=== PATIENT | female | born 1940 | race Caucasian/White ===

== ENCOUNTER 2024-11-22 02:11 | Inpatient (IN) | payer OTHER ==
[2024-11-22] MEDS ORDERED: TDAP (DIPHTH,PERTUSS(ACELL),TET VAC) 0.5 ML VIAL IMVAC ONE (02:38)
[2024-11-22] MEDS ORDERED: LIDOCAINE 1% 20 ML MDV ONE (02:38)
[2024-11-22] MEDS ORDERED: HYDROCODONE/APAP 5/325 MG TAB ONE (03:26)
[2024-11-22 04:18] LABS: PT Prothrombin Time 11.5 SECONDS (10-13.0); Protime INR 1.01
[2024-11-22 04:32] LABS: ALT/SGPT 16 U/L (13-56); AST/SGOT 17 U/L (15-37); Albumin 3.7 g/dL (3.4-5.0); Albumin/Globulin Ratio 1.1 (1.1-1.8); Alkaline Phosphatase 80 U/L (45-117); Anion Gap 9.3 mEq/L (5.0-15.0); BUN Blood Urea Nitrogen 5 mg/dL (7-18); Bicarbonate 25 mEq/L (21-32); Bilirubin Total 0.5 mg/dL (0.2-1.0); Globulin 3.4 g/dL (2.3-3.5); Glomerular Filtration Rate 82 ml/min (=/>90); Glucose Level 111 mg/dL (74-106); NT PRO-BNP 290 pg/mL (<450); Potassium 3.3 mEq/L (3.5-5.1); Protein, Total 7.1 g/dL (6.4-8.2); Sodium Level 140 mEq/L (136-145); Troponin High Sensitivity 5.3 pg/mL (<58.9)
[2024-11-22 04:33] LABS: Bilirubin Direct < 0.2 mg/dL (0-0.2); Bilirubin Indirect, Calculated 0.3 mg/dL (0.2-0.8)
[2024-11-22 04:41] LABS: Specific Gravity < 1.005 (1.005-1.030); Sqamous Epithelial <5 /HPF (None Seen); Urine Bacteria None Seen /HPF (<20); Urine Bilirubin NEGATIVE (Negative); Urine Blood Negative (Negative); Urine Clarity Turbid (Clear); Urine Color Colorless (Yellow); Urine Glucose NEGATIVE (Negative); Urine Ketones NEGATIVE (Negative); Urine Micro Reflex YN NO BILL MICROSCOPIC; Urine Nitrite NEGATIVE (Negative); Urine Protein NEGATIVE (Negative); Urine RBC None Seen /HPF (None Seen); Urine Urobilinogen Normal (Normal); Urine WBC <5 /HPF (<5); Urine pH 7.5 (5.0-7.0)
[2024-11-22 04:45] LABS: Absolute Basophils 0.1 K/uL (0-0.5); Absolute Eosinophils 0.1 K/uL (0-0.5); Absolute Lymphocytes (CBC) 1.4 K/uL (0.7-4.9); Absolute Monocytes 0.6 K/uL (0.1-1.3); Absolute Neutrophil 10.5 K/uL (1.8-8.0); Basophils % 0.5 % (0-1.3); Eosinophils % 0.7 % (0-4.4); Hemoglobin 14.8 g/dL (12.0-15.0); Lymphocytes % 10.9 % (15.3-44.8); MCH 28.9 pg (27.0-35.0); MCHC 34.4 g/dL (32.0-36.0); MCV 84.1 fL (80-100); MPV 7.8 fL (7.6-11.3); Monocytes % 4.5 % (3.3-12.3); Neutrophils % 83.4 % (41.7-73.7); Nucleated Red Blood Cells % 0.3 % (0-0); Platelets 175 thou/uL (152-406); RBC Red Blood Cell Count 5.12 M/uL (3.86-4.86); Red Cell Distribution Width 14.5 % (12.1-15.2)
[2024-11-22] MEDS ORDERED: POTASSIUM CL SA 10 MEQ TAB PO ONE (05:44)
--- NOTE | 2024-11-22 05:50 | ER ---
Nurse's Notes [facility] Name: Larisa Beyer Age: 84 yrs Sex: Female : 1940 Arrival Date: 11/22/2024 Time: 02:11 Bed 3 Private MD: Diagnosis: Syncope and collapse, acute fall at home, posterior scalp laceration, acute right hip contusion Presentation: 11/22 02:17 Chief complaint: Patient states: I fell and i am bleeding a lot. I am not on any blood kd3 thinners. I do not take any medications. I probably should but i do not. I do not know what made me fall and i do not remember why i got up out of bed in the first place. My neck and my right hip hurts, my head hurts and my nose hurts. Care prior to arrival: None. Mechanism of Injury: Fall from standing position. Trauma event details: Injury occurred in the [facility]. 02:17 Acuity: CHARLY 3 kd3 02:17 Method Of Arrival: Wheelchair kd3 02:48 Coronavirus screen: Vaccine status: unknown. Ebola Screen: No symptoms or risks kd3 identified at this time. Initial Sepsis Screen: Does the patient meet any 2 criteria? No. Patient's initial sepsis screen is negative. Does the patient have a suspected source of infection? No. Patient's initial sepsis screen is negative. Risk Assessment: Do you want to hurt yourself or someone else? Patient reports no desire to harm self or others. Onset of symptoms was November 22, 2024. Trauma Activation: Physician: ED Physician; Name: priti; Notified At: 02:20; Arrived At: 02:20 Physician: General Surgeon; Name: ; Notified At: 02:20; Arrived At: Physician: Radiology; Name: ; Notified At: 02:20; Arrived At: Physician: Respiratory; Name: ; Notified At: 02:20; Arrived At: Physician: Lab; Name: ; Notified At: 02:20; Arrived At: Historical: - Allergies: 08:41 No Known Allergies; ll1 - Immunization history: Last tetanus immunization: > 10 years ago. - Infectious Disease History:: Denies. - Social history:: Smoking status: Patient denies any tobacco usage or history of. - Family history:: not pertinent. Screenin:17 Abuse screen: Denies threats or abuse. Denies injuries from another. Tuberculosis kd3 screening: No symptoms or risk factors identified. 02:48 [facility] ED Fall Risk Assessment (Adult) History of falling in the last 3 months, kd3 including since admission Yes- single mechanical fall (1 pt) Confusion or Disorientation No (0 pts) Intoxicated or Sedated No (0 pts) Impaired Gait Yes (1 pt) Mobility Assist Device Used No (0 pt) Altered Elimination Score/Fall Risk Level 0 - 2 = Low Risk Maintained a safe environment. Nutritional screening: No deficits noted. Primary Survey: 02:17 NO uncontrolled hemorrhage observed. A: The client is awake and alert. The airway is kd3 patent. The client is alert. Airway: patent. Breathing/Chest: Spontaneous respiratory effort, equal unlabored respirations, breath sounds clear bilaterally, regular pattern, symmetrical chest rise and fall. Circulation: No external hemorrhage present. Regular and strong central pulse, skin warm/dry/normal color. Disability Pupils are equal, round, reactive to light and accommodation. Exposure/Environment: All clothing and personal items were removed. Forensic evidence collection is not deemed to be indicated at this time. Items placed in patient belonging bag. Obvious injury(ies) are noted at this time: laceration to the back of the head. 06:32 Reassessment Alertness and Airway: Awake and alert. The airway is patent. Breathing: kd3 Spontaneous respiratory effort, equal unlabored respirations, breath sounds clear bilaterally, regular pattern with symmetrical chest rise and fall. Circulation: No external hemorrhage noted. Regular and strong central pulse, skin warm/dry/normal color. Disability: Pupils Pupils are equal, round, reactive to light and accomodation. Alert. Assessment: 02:17 General: Appears in no apparent distress. Behavior is calm, cooperative. Pain: kd3 Complains of pain in scalp, right hip, nose and neck. 02:17 Neuro: No deficits noted. Level of Consciousness is awake, alert, obeys commands, kd3 Oriented to person, place, time, situation. Respiratory: Airway is patent Trachea midline Respiratory effort is even, unlabored, Respiratory pattern is regular, symmetrical. 06:27 General: PT was up for discharge. Shortly after removing her IV access and transferring kd3 her into the wheelchair, pt lost control of her bladder, Pt stated "I really do not feel well", held her head in her hands and then had a syncopal episode where she briefly became unresponsive. ER staff responded and cleaned her of urine, placed her back into the stretcher, placed on continuous monitoring, new IV access obtained in the left A/C. Pt's skin felt warm to the touch and clammy. Pt temp is 97.8. Pt is now back to baseline, alert and oriented x 4, respirations even and unlabored. Pt is NSR on the bedside monitor. Pt placed on a purwick. warm blankets provided for comfort. . 06:37 General: Pt now noted to be 88% on RA. nasal canula placed on the pt. . kd3 Vital Signs: 02:15 BP 165 / 97; Pulse 96; Resp 18; Temp 98(O); Pulse Ox 98% on R/A; Weight 53.52 kg; oe Height 5 ft. 2 in. ; 02:48 BP 168 / 84; Pulse 79; Resp 18; Pulse Ox 100% on R/A; kd3 04:53 BP 165 / 87; Pulse 83; Resp 19; Pulse Ox 94% on R/A; kd3 05:33 BP 137 / 82; Pulse 84; Resp 18; Pulse Ox 96% on R/A; oe 06:36 BP 127 / 78; Pulse 81; Resp 20; Pulse Ox 88% on R/A; kd3 08:41 BP 132 / 82; Pulse 80; Resp 18; Pulse Ox 97% on 2 lpm NC; ll1 02:15 Body Mass Index 21.58 (53.52 kg, 157.48 cm) oe [place] Coma Score: 02:17 Eye Response: spontaneous(4). Motor Response: obeys commands(6). Verbal Response: kd3 oriented(5). Total: 15. 06:02 Eye Response: spontaneous(4). Motor Response: obeys commands(6). Verbal Response: sp4 oriented(5). Total: 15. Trauma Score (Adult): 02:17 Eye Response: spontaneous(1); Verbal Response: oriented(1); Motor Response: obeys kd3 commands(2); Systolic BP: > 89 mm Hg(4); Respiratory Rate: 10 to 29 per min(4); [place] Score: 15; Trauma Score: 12 ED Course: 02:11 Patient arrived in ED. [id number] 02:12 Viktor Schroeder MD is Attending Physician. sp4 02:17 Noemi Arriola, RN is Primary Nurse. kd3 02:17 Patient has correct armband on for positive identification. kd3 02:17 Patient maintains SpO2 saturation greater than 95% on room air. kd3 02:20 Triage completed. kd3 02:57 CT Head Brain wo Cont In Process Unspecified. EDMS 03:39 Pelvis XRAY In Process Unspecified. EDMS 03:39 Femur Right XRAY In Process Unspecified. EDMS 04:04 Basic Metabolic Panel Sent. kd3 04:04 CBC with Diff Sent. kd3 04:04 LFT's Sent. kd3 04:04 NT PRO-BNP Sent. kd3 04:04 PT-INR Sent. kd3 04:04 Troponin HS Sent. kd3 04:04 Inserted saline lock: 22 gauge in right forearm, using aseptic technique. Blood kd3 collected. Flushed with 10 mL NS. 04:04 Initial lab(s) drawn, by me, sent to lab. kd3 04:20 Basic Metabolic Panel Sent. kd3 04:20 CBC with Diff Sent. kd3 04:20 LFT's Sent. kd3 04:20 NT PRO-BNP Sent. kd3 04:20 Troponin HS Sent. kd3 04:20 Urinalysis W/Microscopic Sent. kd3 04:31 EKG done, by ED staff, reviewed by Viktor Schroeder MD. oe 04:45 Assist provider with laceration repair. kd3 05:48 Jeremías Aldridge DO is Referral Physician. sp4 06:08 Tod Koehler MD is Hospitalizing Provider. sp4 06:12 Hospitalizing Provider role handed off by Tod Koehler MD sp4 06:12 Manuelito Massey is Hospitalizing Provider. sp4 06:31 Inserted saline lock: 22 gauge in left antecubital area, using aseptic technique. kd3 Flushed with 10 mL NS. 06:32 Arm band placed on Emesis basin given. kd3 06:32 Thermoregulation: warm blanket given to patient. kd3 07:00 Provided Education on: ER procedures and rpocess. ll1 08:30 Patient admitted, IV remains in place. ll1 Administered Medications: 02:42 Drug: Boostrix Tdap IM 0.5 ml IM once; as a single dose Route: IM; Site: left deltoid; kd3 08:31 Follow up: Response: No adverse reaction ll1 03:33 Drug: HYDROcodone-acetaminophen PO 5 mg-325 mg 1 tabs PO once Route: PO; kd3 08:31 Follow up: Response: No adverse reaction; Pain is decreased ll1 03:34 Drug: Lidocaine Infiltration (1 %) 20 ml 20 ml Infiltration once; to bedside {Note: kd3 administered by provider .} Volume: 20 ml; Route: Infiltration; 08:31 Follow up: Response: No adverse reaction ll1 05:47 Drug: Potassium Chloride PO 20 mEq PO once Route: PO; kd3 08:31 Follow up: Response: No adverse reaction ll1 06:26 Drug: Ondansetron IVP 4 mg IVP once; over 2 minutes Route: IVP; Site: left antecubital; kd3 08:31 Follow up: Response: No adverse reaction; Nausea is decreased ll1 Medication: 06:33 VIS not applicable for this client. kd3 Intake: 08:30 PO: 0ml; Total: 0ml. ll1 Output: 08:30 Urine: 0ml; Total: 0ml. ll1 Outcome: 05:49 Discharge ordered by . sp4 06:12 Decision to Hospitalize by Provider. sp4 08:29 Admitted to Med/surg accompanied by tech, via stretcher, room room 224, with oxygen, ll1 with chart, Report called to Report faxed to 2nd, no answer after 6 phone calls to the 2nd floor over 20 minutes times period. registered route associate informed. 08:29 Condition: stable 08:29 Instructed on the need for admit, 08:30 Patient's length of stay was not longer than 2 hours. ll1 08:41 Patient left the ED. ll1 Signatures: Dispatcher [employer] EDMS Puneet Field Lynsay, RN RN ll1 Collette Weinerj6 Noemi Arriola RN RN kd3 Viktor Schroeder MD MD sp4 Corrections: (The following items were deleted from the chart) 02:28 02:15 BP 165 / 97; Pulse 96bpm; Resp 18bpm; Pulse Ox 98% RA; Temp 98F Oral; oe oe
--- NOTE | 2024-11-22 05:50 | EDPHYS ---
Physician Documentation [facility] Name: Larisa Beyer Age: 84 yrs Sex: Female : 1940 Arrival Date: 11/22/2024 Time: 02:11 Bed 3 Private MD: ED Physician Viktor Schroeder HPI: 11/22 02:12 This 84 yrs old Female presents to ER via Unassigned with complaints of Fall sp4 Injury, Head Injury-Adult. 05:58 84-year-old female Presents with acute fall , small laceration to posterior to superior sp4 scalp, also complained of some generalized weakness. 06:02 Patient also reported some pain in her right hip.. sp4 Historical: - Allergies: 08:41 No Known Allergies; ll1 - Immunization history: Last tetanus immunization: > 10 years ago. - Infectious Disease History:: Denies. - Social history:: Smoking status: Patient denies any tobacco usage or history of. - Family history:: not pertinent. ROS: 06:02 Constitutional: Negative for fever, chills, and weight loss, positive on right hip pain sp4 and scalp laceration also positive for head injury 06:02 All other systems are negative, Exam: 06:02 Constitutional: This is a well developed, well nourished patient who is awake, alert, sp4 and in no acute distress. Head/Face: Normocephalic, atraumatic. Eyes: Pupils equal round and reactive to light, extra-ocular motions intact. Lids and lashes normal. Conjunctiva and sclera are not injected. Cornea within normal limits. Periorbital areas with no swelling, redness, or edema. ENT: Nares patent. No nasal discharge, no septal abnormalities noted. Tympanic membranes are normal and external auditory canals are clear. Oropharynx with no redness, swelling, or masses, exudates, or evidence of obstruction, uvula midline. Mucous membranes moist. Neck: Trachea midline, no thyromegaly or masses palpated, and no cervical lymphadenopathy. Supple, full range of motion without nuchal rigidity, or vertebral point tenderness. Chest/axilla: Normal chest wall appearance and motion. Nontender with no deformity. No lesions are appreciated. Cardiovascular: Regular rate and rhythm with a normal S1 and S2. No gallops, murmurs, or rubs. Normal PMI, no JVD. No pulse deficits. Respiratory: Lungs have equal breath sounds bilaterally, clear to auscultation and percussion. No rales, rhonchi or wheezes noted. No increased work of breathing, no retractions or nasal flaring. Abdomen/GI: Soft, with normal bowel sounds. No distension or tympany. No guarding or rebound. No evidence of tenderness throughout. Back: No spinal tenderness. No costovertebral tenderness. Skin: Warm, dry with normal turgor. Normal color with no rashes, no lesions, and no evidence of cellulitis. MS/ Extremity: Pulses equal, no cyanosis. Neurovascular intact. Full, normal range of motion. Neuro: Awake and alert, GCS 15, oriented to person, place, time, and situation. Cranial nerves II-XII grossly intact. Motor strength 5/5 in all extremities. Sensory grossly intact. Psych: Awake, alert, with orientation to person, place and time. Behavior, mood, and affect are within normal limits 07:05 ECG was reviewed by the Attending Physician. EKG at 0 424 first-degree AV block, sp4 sinus rhythm rate 80, left axis deviation. Vital Signs: 02:15 BP 165 / 97; Pulse 96; Resp 18; Temp 98(O); Pulse Ox 98% on R/A; Weight 53.52 kg; oe Height 5 ft. 2 in. ; 02:48 BP 168 / 84; Pulse 79; Resp 18; Pulse Ox 100% on R/A; kd3 04:53 BP 165 / 87; Pulse 83; Resp 19; Pulse Ox 94% on R/A; kd3 05:33 BP 137 / 82; Pulse 84; Resp 18; Pulse Ox 96% on R/A; oe 06:36 BP 127 / 78; Pulse 81; Resp 20; Pulse Ox 88% on R/A; kd3 08:41 BP 132 / 82; Pulse 80; Resp 18; Pulse Ox 97% on 2 lpm NC; ll1 02:15 Body Mass Index 21.58 (53.52 kg, 157.48 cm) oe [place] Coma Score: 02:17 Eye Response: spontaneous(4). Motor Response: obeys commands(6). Verbal Response: kd3 oriented(5). Total: 15. 06:02 Eye Response: spontaneous(4). Motor Response: obeys commands(6). Verbal Response: sp4 oriented(5). Total: 15. Trauma Score (Adult): 02:17 Eye Response: spontaneous(1); Verbal Response: oriented(1); Motor Response: obeys kd3 commands(2); Systolic BP: > 89 mm Hg(4); Respiratory Rate: 10 to 29 per min(4); [place] Score: 15; Trauma Score: 12 Laceration: 06:03 Wound Repair of 1cm ( 0.4in ) subcutaneous laceration to left parietal area. sp4 Irregularly shaped.. Minimal bleeding noted.. Moderate contamination.. Distal neuro/vascular/tendon intact. Anesthesia: Wound infiltrated with 10 mls of 1% lidocaine. Wound prep: Moderate cleansing by me, Copious irrigation. Skin closed with 3 4-0 Silk using interrupted sutures and sterile technique. Dressed with left to air . Patient tolerated well. MDM: 03:02 Medical Screening Exam initiated sp4 05:38 ED course: EXAM: XR Right Femur, 2 Views CLINICAL HISTORY: The patient is 84 years old sp4 and is Female; right hip pain TECHNIQUE: Two views of the right femur. COMPARISON: No relevant prior studies available. FINDINGS: Bones/joints: No acute fracture visualized. No significant arthropathy. No dislocation. Soft tissues: Unremarkable. IMPRESSION: No acute findings in the right femur. . ED course: EXAM: CT Head Without Intravenous Contrast CLINICAL HISTORY: The patient is 84 years old and is Female; head injury TECHNIQUE: Axial computed tomography images of the head/brain without intravenous contrast. Sagittal and coronal reformatted images were created and reviewed. This CT exam was performed using one or more of the following dose reduction techniques: automated exposure control, adjustment of the mA and/or kV according to patient size, and/or use of iterative reconstruction technique. COMPARISON: No relevant prior studies available. FINDINGS: Brain: Mild nonspecific white matter changes likely related to chronic microvascular ischemic disease. No hemorrhage. Ventricles: Unremarkable. No ventriculomegaly. Bones/joints: Unremarkable. No acute fracture. Soft tissues: High left scalp swelling. Sinuses: Unremarkable as visualized. Mastoid air cells: Unremarkable as visualized. No mastoid effusion. IMPRESSION: No acute intracranial abnormality. . 05:58 ED course: EXAM: XR Pelvis, 1 or 2 Views CLINICAL HISTORY: The patient is 84 years old sp4 and is Female; Right hip pain. TECHNIQUE: Single frontal view of the pelvis. COMPARISON: No relevant prior studies available. FINDINGS: Bones/joints: Small area of potential cortical discontinuity in the right proximal femoral neck, superior aspect. Left total hip arthroplasty hardware. No dislocation. Degenerative changes in the spine. No acute fracture. Soft tissues: Unremarkable. IMPRESSION: Small area of potential cortical discontinuity in the right proximal femoral neck, superior aspect. Dedicated x-rays of the right hip recommended.. 06:05 Differential diagnosis: abrasion, closed head injury, contusion, fracture, laceration, sp4 multiple trauma, sprain, strain. Data reviewed: vital signs, nurses notes, old medical records, lab test result(s), radiologic studies, CT scan, plain films. Consideration of Admission/Observation Escalation of care including admission/observation considered. ED course: Laceration repaired. Workup today is unremarkable. EKG is basically unremarkable. Patient stable for discharge. 11/22 03:49 Order name: Basic Metabolic Panel; Complete Time: 05:01 sp4 11/22 03:49 Order name: CBC with Diff sp4 11/22 03:49 Order name: LFT's; Complete Time: 05:01 sp4 11/22 03:49 Order name: NT PRO-BNP; Complete Time: 05:01 sp4 11/22 03:49 Order name: PT-INR; Complete Time: 05:01 sp4 11/22 03:49 Order name: Troponin HS; Complete Time: 05:01 sp4 11/22 03:49 Order name: Urinalysis W/Microscopic; Complete Time: 05:01 sp4 11/22 04:49 Order name: CBC Smear Scan EDMS 11/22 07:21 Order name: Urinalysis w/ reflexes EDMS 11/22 07:21 Order name: CBC with Automated Diff EDMS 11/22 07:21 Order name: CBC with Automated Diff EDMS 11/22 07:21 Order name: CBC with Automated Diff EDMS 11/22 07:21 Order name: CBC with Automated Diff EDMS 11/22 07:21 Order name: Comprehensive Metabolic Panel EDMS 11/22 07:21 Order name: Comprehensive Metabolic Panel EDMS 11/22 07:21 Order name: Comprehensive Metabolic Panel EDMS 11/22 07:21 Order name: Comprehensive Metabolic Panel EDMS 11/22 07:21 Order name: T4 Free EDMS 11/22 07:21 Order name: T4 Free EDAL 11/22 07:21 Order name: Thyroid Stimulating Hormone EDAL 11/22 07:21 Order name: Thyroid Stimulating Hormone EDAL 11/22 07:21 Order name: Troponin High Sensitivity EDAL 11/22 07:21 Order name: Troponin High Sensitivity EDAL 11/22 07:21 Order name: Troponin High Sensitivity EDAL 11/22 02:28 Order name: CT Head Brain wo Cont; Complete Time: 06:45 sp4 11/22 03:04 Order name: Pelvis XRAY; Complete Time: 06:45 sp4 11/22 03:04 Order name: Femur Right XRAY; Complete Time: 06:45 sp4 11/22 03:49 Order name: EKG; Complete Time: 03:50 sp4 11/22 07:21 Order name: Physical Therapy Consult EDAL 11/22 02:28 Order name: Dressing - Wound; Complete Time: 02:42 sp4 11/22 02:28 Order name: Gloves, Sterile; Complete Time: 02:42 sp4 11/22 02:28 Order name: Setup Suture Tray; Complete Time: 02:42 sp4 11/22 03:49 Order name: Cardiac monitoring; Complete Time: 04:19 sp4 11/22 03:49 Order name: EKG - Nurse/Tech; Complete Time: 04:19 sp4 11/22 03:49 Order name: IV Saline Lock; Complete Time: 04:04 sp4 11/22 03:49 Order name: Labs collected and sent; Complete Time: 04:19 sp4 11/22 03:49 Order name: O2 Per Protocol; Complete Time: 04:19 sp4 11/22 03:49 Order name: O2 Sat Monitoring; Complete Time: 04:19 sp4 11/22 06:14 Order name: IV Start; Complete Time: 06:26 kd3 EC:24 Rate is 80 beats/min. Rhythm is regular, Sinus Rhythm. Left axis deviation noted. MO sp4 interval is prolonged. QRS interval is normal. QT interval is normal. No Q waves. T waves are Normal. No ST changes noted. Clinical impression: No evidence of ischemia. Interpreted by me. Reviewed by me. Administered Medications: 02:42 Drug: Boostrix Tdap IM 0.5 ml IM once; as a single dose Route: IM; Site: left deltoid; kd3 08:31 Follow up: Response: No adverse reaction ll1 03:33 Drug: HYDROcodone-acetaminophen PO 5 mg-325 mg 1 tabs PO once Route: PO; kd3 08:31 Follow up: Response: No adverse reaction; Pain is decreased ll1 03:34 Drug: Lidocaine Infiltration (1 %) 20 ml 20 ml Infiltration once; to bedside {Note: kd3 administered by provider .} Volume: 20 ml; Route: Infiltration; 08:31 Follow up: Response: No adverse reaction ll1 05:47 Drug: Potassium Chloride PO 20 mEq PO once Route: PO; kd3 08:31 Follow up: Response: No adverse reaction ll1 06:26 Drug: Ondansetron IVP 4 mg IVP once; over 2 minutes Route: IVP; Site: left antecubital; kd3 08:31 Follow up: Response: No adverse reaction; Nausea is decreased ll1 Disposition Summary: 11/22/24 06:12 Hospitalization Ordered Notes: Return to ER on December 13 for suture removal Hospitalization Status: Inpatient Admission sp4 Location: Telemetry/[facility] (Inpatient)(11/22/24 06:12) sp4 Condition: Stable(11/22/24 06:12) sp4 Problem: new(11/22/24 06:12) sp4 Symptoms: have improved(11/22/24 06:12) sp4 Bed/Room Type: Standard sp4 Provider: Manuelito Massey(11/22/24 06:13) sp4 Room Assignment: 224(11/22/24 07:45) sp Diagnosis - Syncope and collapse, acute fall at home, posterior scalp laceration, acute sp4 right hip contusion Forms: - Medication Reconciliation Form sp4 - SBAR form sp4 - Leadership Thank You Letter sp4 Signatures: Dispatcher [employer] EDMS Victorina Sauceda Lee, DISTRICT PLANT SUPERINTENDENT-C DISTRICT PLANT SUPERINTENDENT-Cla1 Jodee Jimenez RN RN ll1 Noemi Arriola RN RN kd3 Viktor Schroeder MD MD sp4 Corrections: (The following items were deleted from the chart) 02:28 02:28 Head Brain Wo Cont+CT.RAD.BRZ ordered. EDMS EDMS 03:05 03:05 Pelvis+RAD.RAD.BRZ ordered. EDMS EDMS 03:05 03:05 Femur Right+RAD.RAD.BRZ ordered. EDMS EDMS 03:50 03:50 BASIC METABOLIC PANEL+C.LAB.BRZ ordered. EDMS EDMS 03:50 03:50 CBC+H.LAB.BRZ ordered. EDMS EDMS 03:50 03:50 HEPATIC FUNCTION+C.LAB.BRZ ordered. EDMS EDMS 03:50 03:50 PROBNP+C.LAB.BRZ ordered. EDMS EDMS 03:50 03:50 PROTIME (+INR)+COAG.LAB.BRZ ordered. EDMS EDMS 03:50 03:50 Troponin High Sensitivity+C.LAB.BRZ ordered. EDMS EDMS 06:08 05:49 Home sp4 sp4 06:08 05:49 new sp4 sp4 06:08 05:49 have improved sp4 sp4 06:08 05:49 Stable sp4 sp4 06:08 05:49 Laceration without foreign body of scalp sp4 sp4 06:08 05:49 Acute fall at home, mild hypokalemia, acute scalp laceration, acute right hip sp4 pain and contusion sp4 06:13 06:12 Tod Koehler sp4 sp4 07:45 06:12 sp4 sp
--- NOTE | 2024-11-22 06:11 | RAD REPORT ---
EXAM: XR Pelvis, 1 or 2 Views CLINICAL HISTORY: The patient is 84 years old and is Female; Right hip pain. TECHNIQUE: Single frontal view of the pelvis. COMPARISON: No relevant prior studies available. FINDINGS: Bones/joints: Small area of potential cortical discontinuity in the right proximal femoral neck, superior aspect. Left total hip arthroplasty hardware. No dislocation. Degenerative changes in the spine. No acute fracture. Soft tissues: Unremarkable. IMPRESSION: Small area of potential cortical discontinuity in the right proximal femoral neck, superior aspect. Dedicated x-rays of the right hip recommended. Electronically signed by: Jackie Torres MD 11/22/2024 05:39 AM CDT RP V2 Due to temporary technical issues with the PACS/[employer] reporting system, reports are being song d by the in-house radiologist without review as a courtesy to ensure prompt reporting the interpreting radiologist is fully responsible for the content of the report. Transcribed Date/Time: 11/22/2024 6:11 AM
--- NOTE | 2024-11-22 06:11 | RAD REPORT ---
EXAM: XR Right Femur, 2 Views CLINICAL HISTORY: The patient is 84 years old and is Female; right hip pain TECHNIQUE: Two views of the right femur. COMPARISON: No relevant prior studies available. FINDINGS: Bones/joints: No acute fracture visualized. No significant arthropathy. No dislocation. Soft tissues: Unremarkable. IMPRESSION: No acute findings in the right femur. Electronically signed by: Jackie Torres MD 11/22/2024 05:35 AM CDT RP V2 Due to temporary technical issues with the PACS/[employer] reporting system, reports are being song d by the in-house radiologist without review as a courtesy to ensure prompt reporting the interpreting radiologist is fully responsible for the content of the report. Transcribed Date/Time: 11/22/2024 6:10 AM
[2024-11-22] MEDS ORDERED: ONDANSETRON 4 MG/2 ML VIAL ONE (06:16)
--- NOTE | 2024-11-22 06:36 | RAD REPORT ---
EXAM: CT Head Without Intravenous Contrast CLINICAL HISTORY: The patient is 84 years old and is Female; head injury TECHNIQUE: Axial computed tomography images of the head/brain without intravenous contrast. Sagit dona and coronal reformatted images were created and reviewed. This CT exam was performed using one or more of the following dose reduction techniques: automated exposure control, adjustment of t he mA and/or kV according to patient size, and/or use of iterative reconstruction technique. COMPARISON: No relevant prior studies available. FINDINGS: Brain: Mild nonspecific white matter changes likely related to chronic microvascular ischemic dis ease. No hemorrhage. Ventricles: Unremarkable. No ventriculomegaly. Bones/joints: Unremarkable. No acute fracture. Soft tissues: High left scalp swelling. Sinuses: Unremarkable as visualized. Mastoid air cells: Unremarkable as visualized. No mastoid effusion. IMPRESSION: No acute intracranial abnormality. Electronically signed by: Damian Alegria MD 11/22/2024 04:30 AM CDT RP 8 Due to temporary technical issues with the PACS/Bloo[employer] reporting system, reports are being song d by the in-house radiologist without review as a courtesy to ensure prompt reporting the interpreting radiologist is fully responsible for the content of the report. Transcribed Date/Time: 11/22/2024 6:33 AM
[2024-11-22 07:28] LABS: White Blood Cell Scan OK (OK)
[2024-11-22 07:31] LABS: Blood Morphology Comment NOT SEEN (NOT SEEN)
[2024-11-22 07:32] LABS: Platelet Estimate ADEQ
--- NOTE | 2024-11-22 09:16 | P.HP ---
Certification for Inpatient Patient admitted to: Inpatient With expected LOS: >2 Midnights Patient will require the following post-hospital care: None Practitioner: I am a practitioner with admitting privileges, knowledge of patient current condition, hospital course, and medical plan of care. Services: Services provided to patient in accordance with Admission requirements found in Title 42 Section 412.3 of the Code of Federal Regulations Patient History Date of Service: 11/22/24 Reason for admission: Falls, syncope History of Present Illness: 84-year-old female with no reported past medical history presents to the emergency department after an unwitnessed fall. She lives at home with her brother and had reportedly crawled to his door to ask for help after falling. She had a laceration to her scalp and she had complained about pain to her hip. She was evaluated in the emergency department her laceration was repaired. She had imaging of her pelvis and femur with no fracture found and CT of her head was negative for acute findings. Initially plan was for discharge but when patient was moved into a wheelchair she had a syncopal episode with incontinence. Her initial high sensory troponin was normal, she is currently alert and oriented x 3. She will be admitted for further evaluation and management of falls, syncope. - Past Medical/Surgical History -: None reported -: Left hip replacement Psychosocial/ Personal History: Lives at home with her brother - Social History Alcohol use: No CD- Drugs: No Caffeine use: Yes Place of Residence: Home Review of Systems 10-point ROS is otherwise unremarkable Musculoskeletal: Other (Hip pain) Neurological: Other (Syncope) Physical Examination - Physical Exam General: Alert, In no apparent distress, Oriented x3 HEENT: Atraumatic, PERRLA, EOMI Neck: Supple, 2+ carotid pulse no bruit, No LAD Respiratory: Clear to auscultation bilaterally, Normal air movement Cardiovascular: Regular rate/rhythm, Normal S1 S2 Gastrointestinal: Normal bowel sounds, No tenderness Musculoskeletal: No tenderness Integumentary: No rashes Neurological: Normal gait, Normal speech, Normal strength at 5/5 x4 extr, Normal affect - Studies Laboratory Data (last 24 hrs) 11/22/24 11/22/24 11/22/24 04:38 04:04 04:04 WBC 12.60 H Hgb 14.8 Hct 43.0 Plt Count 175 PT 11.5 INR 1.01 Sodium 140 Potassium 3.3 L BUN 5 L Creatinine 0.72 Glucose 111 H Total Bilirubin 0.5 AST 17 ALT 16 Alkaline Phosphatase 80 Assessment and Plan - Plan Assessment: Falls, syncope Plan: Falls, syncope Trend troponins and monitor on telemetry Orthostatic vital signs PT consultation Family reports poor oral intake, encourage oral intake Gentle IV fluids for today DVT PPX: Lovenox Code status: Full Discharge Plan: Home Plan to discharge in: 48 Hours - Advance Directives Does patient have a Living Will: No Does patient have a Durable POA for Healthcare: No - Code Status/Comfort Care Code Status Assessed: Yes (Full code) Critical Care: No Time Spent Managing Pts Care (In Minutes): 67
[2024-11-22] MEDS: HYDRALAZINE HCL 20 MG/ML VIAL IV PRN (09:47)
[2024-11-22 10:34] VITALS: BMI 21.5
[2024-11-22] MEDS: INFLUENZA VACCINE (for 6+ mo) 0.5 ML DOSE IMVAC ONE (12:00)
[2024-11-22] MEDS: NA CHLORIDE 0.9% 1,000 ML IV SCH (12:26)
--- NOTE | 2024-11-22 23:14 | CON ---
Date of Consultation: 11/22/2024 Reason For Consultation: Syncope. History Of Present Illness: An 84-year-old female presented to the emergency room after unwitnessed fall that happened at home. She reported that she tried to crawl to the door asking for help and upo n arrival to the emergency room, she was found to have scalp laceration. Denies having any chest jones n or palpitations, but she says she has been feeling dizzy. Presently vital signs are stable upon ar rival to the hospital. Past Medical History: None. Past Surgical History: Left hip replacement. Medications: Refer reconciliation sheet for detailed list. Allergies: PENICILLIN. Family History: No premature coronary artery disease or cancer. Social History: Does not smoke or drink. Does not use any drugs. Review of Systems: All systems reviewed are negative except as mentioned in the HPI. Physical Examination: Vital Signs: Reviewed. Head and Neck: Pupils are equal, reactive to light. Intact eye movements. No JVD. No cervical lym phadenopathy. Neck supple. Thyroid is not enlarged. Lungs: Clear to auscultation bilaterally. No rhonchi, wheezing, or crackles. No accessory muscle u se. Heart: Regular rate and rhythm. No extra sounds. Abdomen: Soft, nontender. Bowel sounds positive. No organomegaly. No masses or hernia. No rigidi ty or rebound. Extremities: No edema, clubbing, or cyanosis. Intact pulses. Skin: No rash. No nodules. Neurologic: Alert, awake, and oriented x3. No acute focal deficits appreciated. Investigations: First troponin is negative. BUN 5, creatinine 0.72. Hemoglobin is 14.8. Assessment/recommendation: 1. Syncope, unclear etiology. Monitor on telemetry. Trend cardiac enzymes and obtain an echo and pl an accordingly. 2. Leukocytosis. She does have urinary tract infection, which could be the cause of her fall. I rec ommend antibiotics, Rocephin 1 g q.24 hours. 3. Hypokalemia. Repeat potassium today, assure stability. Thank you for the consult. /IVANA Voice ID: [id number] Report ID: [id number]
[2024-11-23 06:25] LABS: Absolute Eosinophils 0.3 K/uL (0-0.5); Absolute Lymphocytes (CBC) 1.1 K/uL (0.7-4.9); Absolute Monocytes 0.5 K/uL (0.1-1.3); Absolute Neutrophil 4.4 K/uL (1.8-8.0); Basophils % 0.6 % (0-1.3); Eosinophils % 4.1 % (0-4.4); Hematocrit 35.8 % (36.0-45.0); Hemoglobin 12.3 g/dL (12.0-15.0); Lymphocytes % 17.9 % (15.3-44.8); MCH 29.2 pg (27.0-35.0); MCHC 34.4 g/dL (32.0-36.0); MCV 84.9 fL (80-100); MPV 7.7 fL (7.6-11.3); Monocytes % 8.1 % (3.3-12.3); Neutrophils % 69.3 % (41.7-73.7); Nucleated Red Blood Cells % 0.1 % (0-0); Platelets 185 thou/uL (152-406); RBC Red Blood Cell Count 4.22 M/uL (3.86-4.86); Red Cell Distribution Width 14.4 % (12.1-15.2)
[2024-11-23 06:49] LABS: Albumin 2.8 g/dL (3.4-5.0); Alkaline Phosphatase 58 U/L (45-117); Anion Gap 4.7 mEq/L (5.0-15.0); BUN Blood Urea Nitrogen 7 mg/dL (7-18); Bicarbonate 27 mEq/L (21-32); Bilirubin Total 0.7 mg/dL (0.2-1.0); Globulin 2.7 g/dL (2.3-3.5); Glomerular Filtration Rate 82 ml/min (=/>90); Glucose Level 102 mg/dL (74-106); Potassium 3.7 mEq/L (3.5-5.1); Protein, Total 5.5 g/dL (6.4-8.2); Sodium Level 141 mEq/L (136-145); Troponin High Sensitivity 5.7 pg/mL (<58.9)
[2024-11-23 06:51] LABS: ALT/SGPT < 14 U/L (13-56); AST/SGOT < 10 U/L (15-37)
[2024-11-23] MEDS: CEFTRIAXONE 1,000 MG in NA CHLORIDE 0.9% 50 ML IVPB SCH (08:31)
[2024-11-23] MEDS: POTASSIUM CL SA 10 MEQ TAB PO ONE (08:31)
[2024-11-23] MEDS: ENOXAPARIN 40 MG/0.4 ML SQ SCH (08:32)
[2024-11-23 10:26] VITALS: O2SAT 90
--- NOTE | 2024-11-23 11:29 | P.PN ---
Date of Service: 11/23/24 Subjective: No acute events overnight Denies any complaints currently Feeling a little better than yesterday when she came in ROS: 10 point ROS as noted above, otherwise negative Physical exam GEN: Alert, oriented, NAD HEENT: Normal conjunctiva, sclera anicteric CV: Regular rate and rhythm, no edema Pulm: Nonlabored respirations on room air ABD: Soft, nontender, nondistended MSK: No joint tenderness Integumentary: No rashes Neuro: Normal speech, normal affect Vitals reviewed Assessment: Falls, syncope UTI Plan: Falls, syncope Troponins negative x 3, continue to monitor on telemetry Orthostatic vital signs were positive, continue gentle IV hydration PT consultation Family reports poor oral intake, encourage oral intake Gentle IV fluids Echocardiogram ordered UTI Urinalysis concerning for UTI, continue Rocephin DVT PPX: Lovenox Code status: Full Discharge Plan: Home Plan to discharge in: 48 Hours Time Spent Managing Pts Care (In Minutes): 35
[2024-11-23] MEDS: FLU (Fluarix Triv) TS24-25(6MOS UP)/PF 45 MCG/0.5 ML Syringe IM ONE (12:00)
[2024-11-24] MEDS: ACETAMINOPHEN 325 MG TABLET PO PRN (01:44)
[2024-11-24 04:32] LABS: Absolute Eosinophils 0.3 K/uL (0-0.5); Absolute Lymphocytes (CBC) 1.4 K/uL (0.7-4.9); Absolute Monocytes 0.6 K/uL (0.1-1.3); Absolute Neutrophil 4.3 K/uL (1.8-8.0); Basophils % 0.5 % (0-1.3); Eosinophils % 4.3 % (0-4.4); Hematocrit 36.4 % (36.0-45.0); Hemoglobin 12.4 g/dL (12.0-15.0); Lymphocytes % 21.6 % (15.3-44.8); MCH 28.8 pg (27.0-35.0); MCHC 34.1 g/dL (32.0-36.0); MCV 84.6 fL (80-100); MPV 7.9 fL (7.6-11.3); Monocytes % 8.5 % (3.3-12.3); Neutrophils % 65.1 % (41.7-73.7); Platelets 164 thou/uL (152-406); Red Cell Distribution Width 14.1 % (12.1-15.2)
[2024-11-24 04:48] LABS: Albumin 2.7 g/dL (3.4-5.0); Albumin/Globulin Ratio 0.9 (1.1-1.8); Alkaline Phosphatase 59 U/L (45-117); Anion Gap 4.8 mEq/L (5.0-15.0); BUN Blood Urea Nitrogen 6 mg/dL (7-18); Bicarbonate 27 mEq/L (21-32); Bilirubin Total 0.6 mg/dL (0.2-1.0); Glomerular Filtration Rate 87 ml/min (=/>90); Glucose Level 95 mg/dL (74-106); Potassium 3.8 mEq/L (3.5-5.1); Protein, Total 5.7 g/dL (6.4-8.2); Sodium Level 141 mEq/L (136-145)
[2024-11-24 04:50] LABS: ALT/SGPT < 14 U/L (13-56); AST/SGOT < 10 U/L (15-37)
[2024-11-24] MEDS: POTASSIUM CL SA 10 MEQ TAB PO ONE (09:08)
--- NOTE | 2024-11-24 09:56 | P.PN ---
Subjective Date of Service: 11/24/24 Chief Complaint: Falls, syncope Subjective: No new changes, No C/O voiced, Tolerating diet, Ambulating, Improving Review of Systems 10-point ROS is otherwise unremarkable Physical Examination - Vital Signs Temperature: 98.0 F Blood Pressure: 157/61 Pulse: 66 Respirations: 15 Pulse Ox (%): 93 - Physical Exam General: Alert, In no apparent distress HEENT: Atraumatic, PERRLA, EOMI Neck: Supple, JVD not distended Respiratory: Clear to auscultation bilaterally, Normal air movement Cardiovascular: Regular rate/rhythm, Normal S1 S2 Gastrointestinal: Normal bowel sounds, No tenderness Musculoskeletal: No tenderness Integumentary: No rashes Neurological: Normal speech, Normal tone, Normal affect Lymphatics: No axilla or inguinal lymphadenopathy - Studies Medications List Reviewed: Yes Assessment And Plan - Current Problems (Diagnosis) (1) Syncope Current Visit: Yes Status: Acute Plan: orthostatic positive, tele shows sinus rhythm with no pauses. Echo pending if echo is normal then outpatient follow up with cardiology. (2) HTN (hypertension) Current Visit: Yes Status: Acute Plan: add Losartan 25 mg daily continue to monitor (3) UTI (urinary tract infection) Current Visit: Yes Status: Acute Plan: Abx per primary team.
--- NOTE | 2024-11-24 14:13 | ECHO ---
HEIGHT: 5 ft 2 in WEIGHT: 118 lb 0 oz DATE OF STUDY: 11/24/[address]: Jordi Marks NP 2-DIMENSIONAL: YES M.MODE: YES DOPPLER: YES COLOR FLOW: YES TDS: PORTABLE: YES DEFINITY: BUBBLE STUDY: DIAGNOSIS: SYNCOPE CARDIAC HISTORY: CATHERIZATION: SURGERY: PROSTHETIC VALVE: PACEMAKER: MEASUREMENTS (cm) DIASTOLIC (NORMALS) SYSTOLIC (NORMALS) IVSd 0.9 (0.6-1.2) LA Diam (1.9-4.0) LVEF 60-65% LVIDd 2. (3.5-5.7) LVIDs 1.4 (2.0-3.5) %FS LVPWd 0.8 (0.6-1.2) Ao Diam 2.9 (2.0-3.7) 2 DIMENSIONAL ASSESSMENT: RIGHT ATRIUM: NORMAL LEFT ATRIUM: NORMAL RIGHT VENTRICLE: NORMAL LEFT VENTRICLE: NORMAL TRICUSPID VALVE: MILD TRICUSPID REGURIGTATION MITRAL VALVE: TRACE MITRAL REGURGITATION PULMONIC VALVE: NORMAL AORTIC VALVE: NORMAL, CALCIFIED PERICARDIAL EFFUSION: NONE AORTIC ROOT: NORMAL LEFT VENTRICULAR WALL MOTION: NORMAL DOPPLER/COLOR FLOW: GRADE I DIASTOLIC DYSFUNCTION COMMENTS: 1. NORMAL LEFT VENTRICULAR SYSTOLIC FUNCTION, EJECTION FRACTION 60-65%, NORMAL WALL MOTION 2. GRADE I DIASTOLIC DYSFUNCTION 3. CALCIFIED AORTIC VALVE, MILD AORTIC STENOSIS TECHNOLOGIST: PREET METZGER
--- NOTE | 2024-11-24 14:49 | P.DS ---
Admission Date: 11/22/24 Discharge Date: 11/24/24 Disposition: ROUTINE DISCHARGE Discharge Condition: GOOD Reason for Admission: Falls, syncope Brief History of Present Illness: 84-year-old female with no reported past medical history presents to the emergency department after an unwitnessed fall. She lives at home with her brother and had reportedly crawled to his door to ask for help after falling. She had a laceration to her scalp and she had complained about pain to her hip. She was evaluated in the emergency department her laceration was repaired. She had imaging of her pelvis and femur with no fracture found and CT of her head was negative for acute findings. Initially plan was for discharge but when patient was moved into a wheelchair she had a syncopal episode with incontinence. Her initial high sensory troponin was normal, she is currently alert and oriented x 3. She will be admitted for further evaluation and management of falls, syncope. Hospital Course: Assessment: Falls, syncope UTI Patient was admitted to the hospital for a fall, syncopal event. Orthostatic vital signs were initially positive and urine was concerning for possible urinary tract infection. She was given IV fluids, antibiotics and seen by PT. Patient symptoms have improved she is no longer orthostatic. She is ambulatory with PT. we will arrange for her to receive home health with PT as well as a short course of oral antibiotics. Encourage oral hydration. Blood pressure elevated but periodically was low, recommend monitoring blood pressure at home checking it daily and recording a log and close follow-up with local primary care doctor to determine need for medications. Also recommend follow-up with cardiology in regards to syncope. Vital Signs/Physical Exam: Temp Pulse Resp BP Pulse Ox 98.1 F 79 16 150/66 H 97 11/24/24 12:00 11/24/24 12:00 11/24/24 12:00 11/24/24 12:11/24/24 12:00 General: Alert, In no apparent distress, Oriented x3 HEENT: Atraumatic, PERRLA Neck: Supple, JVD not distended Respiratory: Clear to auscultation bilaterally, Normal air movement Cardiovascular: Regular rate/rhythm, Normal S1 S2 Gastrointestinal: Normal bowel sounds, No tenderness Musculoskeletal: No tenderness Integumentary: No rashes Neurological: Normal speech, Normal tone, Normal affect Laboratory Data at Discharge: WBC 6.60 thou/uL (4.3-10.9) 04/21/25 04:04 Hgb 12.4 g/dL (12.0-15.0) 11/24/24 04:04 Hct 36.4 % (36.0-45.0) 11/24/24 04:04 Plt Count 164 thou/uL (152-406) 11/24/24 04:04 PT 11.5 SECONDS (10-13.0) 11/22/24 04:04 INR 1.01 11/22/24 04:04 Sodium 141 mEq/L (136-145) 11/24/24 04:04 Potassium 3.8 mEq/L (3.5-5.1) 11/24/24 04:04 BUN 6 mg/dL (7-18) L 11/24/24 04:04 Creatinine 0.62 mg/dL (0.55-1.02) 11/24/24 04:04 Glucose 95 mg/dL (74-106) 11/24/24 04:04 Total Bilirubin 0.6 mg/dL (0.2-1.0) 11/24/24 04:04 AST < 10 U/L (15-37) L 11/24/24 04:04 ALT < 14 U/L (13-56) 11/24/24 04:04 Alkaline Phosphatase 59 U/L (45-117) 11/24/24 04:04 Home Medications: Cefdinir [Cefdinir*] 300 mg PO BID 5 Days #10 cap 11/24/24 New Medications: Cefdinir [Cefdinir*] 300 mg PO BID 5 Days #10 cap Physician Discharge Instructions: Patient was admitted to the hospital for a fall, syncopal event. Orthostatic vital signs were initially positive and urine was concerning for possible urinary tract infection. She was given IV fluids, antibiotics and seen by PT. Patient symptoms have improved she is no longer orthostatic. She is ambulatory with PT. we will arrange for her to receive home health with PT as well as a short course of oral antibiotics. Encourage oral hydration. Blood pressure elevated but periodically was low, recommend monitoring blood pressure at home checking it daily and recording a log and close follow-up with local primary care doctor to determine need for medications. Also recommend follow-up with cardiology in regards to syncope. Diet: Regular Activity: Ad sanjay Followup: Mike Reese MD [ACTIVE - CAN ADMIT] - 1 Week NONE,NONE [Primary Care Provider] - 1 Week Time spent managing pt's care (in minutes): 47
[2024-11-24 16:07] VITALS: BP 154/90; TEMP 98.3
--- NOTE | 2024-11-26 12:53 | EKG ---
Test Date: 2024-11-22 Test Time: 04:24:56 Business Planning Manager: RUTH MEASUREMENT RESULTS: Intervals: Rate: 80 VA: 228 QRSD: 92 QT: 384 QTc: 442 [place]: P: 51 VA: 228 QRS: -30 T: 51 INTERPRETIVE STATEMENTS: Sinus rhythm with 1st degree AV block Left axis deviation Nonspecific ST abnormality Abnormal ECG No previous ECG available for comparison Electronically Signed On 11-26-24 12:42:42 CDT by Mike Reese
== END 2024-11-24 17:32 | disposition home or self-care (01) | DRG 983 ==
LOC: ER 02:11 → ERHOLD 07:15 → 2ND 08:36
PROVIDERS: ADMIT Internal Medicine; ATTEND Internal Medicine
PROC: 0JQ00ZZ Repair Scalp Subcutaneous Tissue and Fascia, Open Approach (ICD-10-PCS; principal; 2024-11-22)
DX: N39.0 Urinary tract infection, site not specified (principal); I10 Essential (primary) hypertension; E87.6 Hypokalemia; S01.01XA Laceration without foreign body of scalp, initial encounter; S70.01XA Contusion of right hip, initial encounter; Z88.0 Allergy status to penicillin; Z96.642 Presence of left artificial hip joint; W18.30XA Fall on same level, unspecified, initial encounter; Y93.9 Activity, unspecified; Y99.9 Unspecified external cause status; Y92.019 Unspecified place in single-family (private) house as the place of occurrence of the external cause
CPT/HCPCS: 12031; 36415; 70450; 72170; 80048; 80053; 80076; 81001; 83880; 84439; 84443; 84484; 85025; 85610; 90715; 93005; 93306; 96372; 96374; 97112; 97116; 97161; 97530; 99285; J0360; J0696; J1650; J2003; J2405; J7030